=== PATIENT | male | born 1985 | race Caucasian/White ===

== ENCOUNTER 2019-05-28 02:59 | Emergency (ER) | payer SELFPAY ==
[2019-05-28 03:06] VITALS: BP 148/100; PULSE 110; RESP 18; TEMP 37.4; O2SAT 95
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
== END 2019-05-28 03:34 | disposition home or self-care (01) ==
LOC: ER 03:34
PROVIDERS: Emergency Provider Student in an Organized Health Care Education/Training Program
DX: S61.512A Laceration without foreign body of left wrist, initial encounter (principal); W26.0XXA Contact with knife, initial encounter
CPT/HCPCS: 12001; 90471